=== PATIENT | male | born 1940 | race Caucasian/White ===

== ENCOUNTER 2023-06-22 07:15 | Emergency (ER) | payer BC, OTHER ==
--- NOTE | 2023-06-22 07:26 | ERPHSYRPT ---
- History of Present Illness Time Seen by Provider: 06/22/23 07:26 Source: patient, family Exam Limitations: no limitations Physician History: This is an 83-year-old white male patient who [facility] but also sees Dr. Gallegos in [facility] and presents soon after his left nephrostomy tube got caught and accidentally was pulled out. Patient is in pain. The nephrostomy tube was placed in March 2023. Oncology, at [facility] in [place], are using this tube to provide the patient with chemotherapy for renal cancer. The patient arrives with his vital signs stable. Patient has a history of hypertension, prostate issues, chronic anemia, hyperlipidemia, coronary artery disease, gastroesophageal reflux disease and anxiety. Timing/Duration: today Severity: moderate (In terms of pain) Associated Symptoms: denies symptoms Allergies/Adverse Reactions: No Known Drug Allergies Allergy (Verified 06/22/23 07:33) Home Medications: Amlodipine Besylate 5 mg [Norvasc 5 mg] 5 mg PO DAILY 09/01/22 [History] Aspirin EC 81 mg [Ecotrin 81 mg] 81 mg PO DAILY 09/01/22 [History] Atorvastatin Calcium 40 mg PO HS 09/01/22 [History] Cyanocobalamin (Vitamin B-12) [B-12] 1,000 mcg PO DAILY 09/01/22 [History] Diclofenac Sodium 75 mg PO BID 09/01/22 [History] Ferrous Gluconate 324 mg PO 3XW 09/01/22 [History] Losartan Potassium [Cozaar] 100 mg PO DAILY 09/01/22 [History] Metoprolol Tartrate 25 mg [Lopressor 25MG Tab] 25 mg PO BID 09/01/22 [History] Nitroglycerin 0.4 mg SL Q5MIN PRN MR X 3 PRN 09/01/22 [History] Polyethylene Glycol 3350 17 gm [Miralax Powder 17GM PACKET] 17 gm PO DAILY 0 09/01/22 [History] Sennosides/Docusate Sodium [Docusate Sodium-Sennosides Tab] 2 each PO BID 09/01/22 [History] Tamsulosin HCl 0.4 mg [Flomax 0.4 MG] 2 cap PO EVENING MEAL 09/01/22 [History] Hx Tetanus, Diphtheria Vaccination/Date Given: Yes Hx Influenza Vaccination/Date Given: Yes Hx Pneumococcal Vaccination/Date Given: Yes Travel Risk - International Travel Have you traveled outside of the country in past 3 weeks: No - Emerging Infectious Disease Are you exhibiting symptoms associated with any current EIDs: No - Vaccine Status Hx Covid Vaccintation/Booster/Date Given: No - Review of Systems Constitutional: No Symptoms Eyes: No Symptoms Ears, Nose, & Throat: No Symptoms Respiratory: No Symptoms Cardiac: No Symptoms Genitourinary Symptoms: Flank Pain (Left sideleft nephrostomy tube accidentally pulled out) Musculoskeletal: No Symptoms Skin: No Symptoms Neurological: No Symptoms Psychological: No Symptoms Endocrine: No Symptoms Hematologic/Lymphatic: No Symptoms - Past Medical History Pertinent Past Medical History: Yes Neurological History: No Pertinent History ENT History: Cataracts Cardiac History: Angina, Coronary Artery Disease, High Cholesterol, Hypertension Respiratory History: No Pertinent History Endocrine Medical History: No Pertinent History Musculoskeletal History: Fractures GI Medical History: GERD, Hernia, Other History: Other Psycho-Social History: Anxiety Other Medical History: 2 tumors to left kidney. stomach rolled up into chest. fx rt wrist - Past Surgical History Past Surgical History: Yes Neuro Surgical History: No Pertinent History Cardiac: Cardiac Catheterization, Cardiac Stent, Pacemaker Respiratory: No Pertinent History Gastrointestinal: Hernia Repair, Other Genitourinary: Kidney Surgery, Other Musculoskeletal: No Pertinent History Male Surgical History: No Pertinent History Other Surgical History: 2009-heart stent. 2013-pacemaker. 2015-removed 2 tumors from left kidney. stomach surgery to correct stomach rolled up - Social History Smoking Status: Never smoker Exposure to second hand smoke: No Drug Use: none Patient Lives Alone: No - Nursing Vital Signs Nursing Vital Signs: Initial Vital Signs Temperature 97.6 F 06/22/23 07:24 Pulse Rate 62 06/22/23 07:24 Respiratory Rate 19 06/22/23 07:24 Blood Pressure 159/89 06/22/23 07:24 O2 Sat by Pulse Oximetry 100 06/22/23 07:24 Pain Scale Pain Intensity 0 - Physical Exam General Appearance: mild distress, alert, anxiety, thin Eye Exam: PERRL/EOMI, eyes nml inspection Ears, Nose, Throat Exam: normal ENT inspection, moist mucous membranes Neck Exam: normal inspection, non-tender, supple, full range of motion Respiratory Exam: airway intact, No chest tenderness, No respiratory distress Cardiovascular Exam: regular rate/rhythm, normal heart sounds Gastrointestinal/Abdomen Exam: soft, normal bowel sounds, No tenderness Rectal Exam: not done Back Exam: normal inspection, normal range of motion, No CVA tenderness (Left side where the left nephrostomy tube was accidentally pulled out this morning prior to arrival) Extremity Exam: normal inspection, normal range of motion, pelvis stable Neurologic Exam: alert, oriented x 3, cooperative, driver guard II-XII nml as tested, nml cerebellar function, nml station & gait, sensation nml Skin Exam: normal color, warm, dry Lymphatic Exam: No adenopathy SpO2 Interpretation: normal O2 Delivery: Room Air - Course Nursing assessment & vital signs reviewed: Yes Ordered Tests: Active Orders 24 hr Category Date Time Status IV Insertion STAT Care 06/22/23 07:41 Active ABDOMEN AND PELVIS W/0 CONTRAS [CT] Stat Exams 06/22/23 07:54 Completed CBC W DIFF Stat Lab 06/22/23 06:01 Completed CMP Stat Lab 06/22/23 06:01 Completed Medication Summary Generic Name Dose Route Start Last Admin Trade Name Freq PRN Reason Stop Dose Admin Sodium Chloride 1,000 mls @ 100 mls/hr 06/22/23 07:45 06/22/23 07:55 Sodium Chloride 0.9% 1000 Ml IV 07/22/23 07:44 Not Given .Q10H DIANE Discontinued Medications Generic Name Dose Route Start Last Admin Trade Name Freq PRN Reason Stop Dose Admin Hydrocodone Bitart/Acetaminophen 1 tab 06/22/23 07:51 06/22/23 07:57 Hydrocodone/Apap 5/325 1 Tab Tablet PO 06/22/23 07:52 1 tab STAT ONE Administration Hydrocodone Bitart/Acetaminophen Confirm 06/22/23 07:56 Hydrocodone/Apap 5/325 1 Tab Tablet Administered 06/22/23 07:57 Dose 1 tab .ROUTE .STK-MED ONE Lorazepam 0.5 mg 06/22/23 07:42 06/22/23 07:56 Lorazepam 2 Mg/1 Ml 2 Mg Vial IV 06/22/23 07:43 Not Given STAT ONE Lorazepam 1 mg 06/22/23 07:51 06/22/23 07:57 Lorazepam 1 Mg Tablet PO 06/22/23 07:52 1 mg STAT ONE Administration Lorazepam Confirm 06/22/23 07:56 Lorazepam 1 Mg Tablet Administered 06/22/23 07:57 Dose 1 mg .ROUTE .STK-MED ONE Morphine Sulfate 4 mg 06/22/23 07:41 06/22/23 07:55 Morphine Sulfate 4 Mg/Ml Injection IV 06/22/23 07:42 Not Given STAT ONE Ondansetron HCl 4 mg 06/22/23 07:41 06/22/23 07:55 Ondansetron Hcl 4 Mg/2 Ml Vial IV 06/22/23 07:42 Not Given STAT ONE Lab/Rad Data: Laboratory Result Diagrams 06/22/23 06:01 06/22/23 06:01 Laboratory Results 06/22/23 06/22/23 Range/Units 06:01 06:01 WBC 12.8 H (4.0-10.5) x10^3/uL RBC 4.49 (4.1-5.6) x10^6/uL Hgb 12.7 (12.5-18.0) g/dL Hct 38.8 L (42-50) % MCV 86.4 (78-100) fL MCH 28.3 (26-32) pg MCHC 32.7 (32-36) g/dL RDW 13.2 (11.5-14.0) % Plt Count 375 (150-450) x10^3/uL MPV 10.0 (7.5-11.0) fL Gran % 80.4 H (36.0-66.0) % Immature Gran % (Auto) 0.4 (0.00-0.4) % Nucleat RBC Rel Count 0.0 (0.00-0.1) % Eos # (Auto) 0.19 (0-0.5) x10^3/uL Immature Gran # (Auto) 0.05 H (0.00-0.03) x10^3u/L Absolute Lymphs (auto) 1.11 (1.0-4.6) x10^3/uL Absolute Monos (auto) 1.11 (0.0-1.3) x10^3/uL Absolute Nucleated RBC 0.00 (0.00-0.01) x10^3u/L Lymphocytes % 8.7 L (24.0-44.0) % Monocytes % 8.7 (0.0-12.0) % Eosinophils % 1.5 (0.00-5.0) % Basophils % 0.3 (0.0-0.4) % Absolute Granulocytes 10.32 H (1.4-6.9) x10^3/uL Basophils # 0.04 (0-0.4) x10^3/uL Sodium 141 (135-145) mmol/L Potassium 3.6 (3.5-5.1) mmol/L Chloride 105 (98-107) mmol/L Carbon Dioxide 25 (22-30) mmol/L Anion Gap 14.5 (5-15) MEQ/L BUN 24 H (9-20) mg/dL Creatinine 0.76 (0.66-1.25) mg/dL Estimated GFR 90.3 ML/MIN Glucose 96 (74-106) mg/dL Calcium 9.6 (8.4-10.2) mg/dL Total Bilirubin 0.70 (0.2-1.3) mg/dL AST 19 (17-59) U/L ALT 10 (0-50) U/L Alkaline Phosphatase 87 (38-126) U/L Serum Total Protein 7.0 (6.3-8.2) g/dL Albumin 4.0 (3.5-5.0) g/dL - Progress Progress: improved, pain not gone completely Progress Note: 06/22/23 07:38 My medical decision making and the assignment of low complexity to this patient's medical issue today is based on review of the patient's past medical history, review of the patient's medication list, review of the patient's history of present illness and physical findings on examination. The workup in this patient includes placement of an intravenous line, CBC, CMP, infusion of low rate normal saline solution, pain control with morphine, infusion of antiemetic and infusion of an anxiolytic. This patient's left nephrostomy tube accidentally pulled out. I inspected the tube and it appears to be completely intact. Hopefully the tract has sufficiently formed within the last few months. His abdominal exam is benign. The main issue, I believe, is to place an intravenous line and to provide him with pain control. We will contact the [facility] in [place] to see if they will accept him in transfer or if they will allow us to transfer him to [facility] where he had the nephrostomy tube placed. 06/22/23 07:50 2 of our emergency department nurses attempted to place an intravenous line in him. Patient wants oral pain medicine. He does not want intramuscular injections of pain medicine. I will also add Ativan to his regimen. Patient is very anxious. 06/22/23 07:52 I was informed by nurse Grayson here in our emergency department that Babita at the [facility] in [place] will be contacting the interactive media specialist they are at that facility. She will call us back to determine if they will allow us to transfer this patient to their facility or to [facility] where the patient had the procedure performed. 06/22/23 09:08 I interpreted the patient's laboratory data results. Patient does have a leukocytosis. The [facility] in [place] called our nurse Grayson and stated that they had no beds available. They told us to go ahead and contact [facility]. They were contacted and we received a phone call back sta ting that the patient's urologist, Dr. Maher, stated that the patient may be discharged to home. This urologist told us to tell the patient to call the urology service if there are any questions or concerns over the weekend at [phone]. He stated that their service will make arrangements for a different way to make sure the patient receives his final dose of chemotherapy. 06/22/23 10:19 The radiologist interpreted the patient's CT scan of the abdomen pelvis without contrast. The impression states left renal nonobstructive stone. Thickening of the ibarra of the renal pelvis and proximal ureter. This could represent infection. No other acute process present within the abdomen and pelvis. Counseled pt/family regarding: lab results, diagnosis Medical Desision Making - Independent Historian Additional History obtained from: Family - Discussion of managment Care discussed with:: specialist (Dr. Maher, the patient's urologist at [facility]) Reviewed:: Test results Agreed on:: Treatment plan, need for follow-up - Diagnostic Testing Diagnostic test were ordered, analyzed, and reviewed by me: Yes Radiological Interpretation: Reviewed by me, Teleradiologist Report - Risk of complications The pt has a mod risk of morbidity or mortality based on: Need for prescription drug management - Departure Departure Disposition: Home Clinical Impression: Nephrostomy tube displaced Condition: Stable Critical Care Time: No Referrals: MARCUS GALLEGOS Jr., MD [Primary Care Provider] - Follow up/PCP as directed Additional Instructions: Drink plenty of clear liquids. Take your medications as prescribed. If you have any questions call your urologist answering service (Dr. Maher) at [phone]. Make sure you contact their office on 06/24/2023 to make arrangements for further evaluation and management. Prescriptions: Hydrocodone/APAP 5/325 [[place] 5/325 mg] 1 each PO Q8H PRN PRN #7 tablet MDD 3 PRN Reason: Pain Ciprofloxacin [Cipro 500 MG] 500 mg PO BID #14 tablet
[2023-06-22 07:33] VITALS: TEMP 97.6
[2023-06-22] MEDS: MORPHINE SULFATE 4 MG INJ IV ONE (07:55)
[2023-06-22] MEDS: Zofran 4 MG/2 ML VIAL IV ONE (07:55)
[2023-06-22] MEDS: Sodium Chloride 0.9% 1000 ML 1,000 ML IV SCH (07:55)
[2023-06-22] MEDS ORDERED: NORCO 5/325 MG ONE (07:56)
[2023-06-22] MEDS: Ativan 2 MG/1 ML VIAL IV ONE (07:56)
[2023-06-22] MEDS ORDERED: Ativan 1 MG ONE (07:56)
[2023-06-22] MEDS: NORCO 5/325 MG PO ONE (07:57)
[2023-06-22] MEDS: Ativan 1 MG PO ONE (07:57)
[2023-06-22 08:06] LABS: Absolute Neutrophil Ct (ANC) 10.32 x10^3/uL (1.4-6.9); BASOPHIL % 0.3 % (0.0-0.4); Basophil (Absolute #) 0.04 x10^3/uL (0-0.4); Eosinophil % 1.5 % (0.00-5.0); Eosinophil (Absolute #) 0.19 x10^3/uL (0-0.5); Hematocrit 38.8 % (42-50); Hemoglobin 12.7 g/dL (12.5-18.0); IMMATURE GRAN # 0.05 x10^3u/L (0.00-0.03); IMMATURE GRAN % 0.4 % (0.00-0.4); Lymphocyte (Absolute #) 1.11 x10^3/uL (1.0-4.6); Lymphocytes % 8.7 % (24.0-44.0); Mean Cell Volume 86.4 fL (78-100); Mean Corpuscular Hemoglobin 28.3 pg (26-32); Mean Corpuscular Hgb Concent. 32.7 g/dL (32-36); Monocyte (Absolute #) 1.11 x10^3/uL (0.0-1.3); Monocytes % 8.7 % (0.0-12.0); Neutrophil % 80.4 % (36.0-66.0); Platelet Count 375 x10^3/uL (150-450); Red Blood Count 4.49 x10^6/uL (4.1-5.6); Red Cell Distribution Width 13.2 % (11.5-14.0); White Blood Count 12.8 x10^3/uL (4.0-10.5)
[2023-06-22 08:27] LABS: ANION GAP 14.5 MEQ/L (5-15); BILIRUBIN,TOTAL 0.7 mg/dL (0.2-1.3); Calcium 9.6 mg/dL (8.4-10.2); Creatinine 1 0.76 mg/dL (0.66-1.25); EST GLOMERULAR FILTRATION RATE 90.3 ML/MIN; Potassium 3.6 mmol/L (3.5-5.1)
--- NOTE | 2023-06-22 10:10 | XRAY ---
CLINICAL HISTORY: L flank pain COMPARISON: None TECHNIQUE: A CT scan of the abdomen and pelvis was performed without IV contrast. Coronal and sagittal reconstructive images were also obtained. One of the following dose reduction techniques was utilized for this exam: Automated exposure control, adjustment of the mA and/or kV according to patient size, use of iterative reconstruction FINDINGS: Two electrodes are identified in the right atrium and ventricle, likely representing a leadless cardiac pacemaker. Mild fibrotic changes are seen in the basal segments of both lower lobes. The liver has average measurements. A few calcifications, measuring up to 2 mm, are seen in the parenchyma. Otherwise, no parenchymal abnormalities are noted. The portal vein, intrahepatic biliary radicals, and the bile ducts are normal. The gallbladder demonstrates a thin wall and homogeneous contents. Numerous calcifications, measuring up to 3 mm, are seen in the spleen parenchyma. Otherwise, no spleen abnormalities are noted. The pancreas and adrenal glands are unremarkable. The right kidney appears unremarkable with no cysts masses or hydronephrosis. A tiny calcific focus measuring about 2.0 x 1.0 mm is seen in the pyramid of upper pole of left kidney. The right ureter is normal with no stones. The left kidney is of average size and shape, harboring a stone, measuring 5x3 mm, is identified in the lower calyx group. There is a thickening of the pelvicalyceal system and the proximal ureter with distension of the renal pelvis and the presence of small hyperdense material and air pocket inside. The left ureter measuring up to 10 mm in diameter with no stones. The ascending colon, transverse colon, and descending colon are dilated. There is calcification of the aorta. No free air and no ascites. No acute appendicitis Pelvis:? The urinary bladder is unremarkable. The sigmoid colon shows numerous diverticula with no evidence of diverticulitis. A few calcifications are identified in the pelvic soft tissues, representing phleboliths. Mildly enlarged prostate.? No evidence of pelvic lymphadenopathy.? No lytic or sclerotic bone lesions. Mild degenerative changes are seen in the lumbar spine. Severe degenerative changes are seen in the right hip joint. IMPRESSION: 1. Left renal non-obstructive stone, thickening of the ibarra of the renal pelvis and proximal ureter could represent infection. correlation with clinical data is advised. 2. Small calcifications in the liver and spleen parenchyma, nonspecific. 3. Mild fibrotic changes in the basal segments of both lower lobes, sequelae of previous infection. 4. Mild degenerative changes are seen in the lumbar spine. 5. Severe degenerative changes are seen in the right hip joint Electronically Signed by: Candice Christine MD. (06/22/2023 10:05:51 EDT)
[2023-06-22 10:38] VITALS: BP 131/71; PULSE 61; RESP 21; O2SAT 98
== END 2023-06-22 10:38 | disposition home or self-care (01) ==
LOC: ED 07:15
DX: N99.522 Malfunction of incontinent external stoma of urinary tract (principal); I10 Essential (primary) hypertension; E78.5 Hyperlipidemia, unspecified; Z79.891 Long term (current) use of opiate analgesic; Z79.899 Other long term (current) drug therapy
CPT/HCPCS: 36415; 74176; 80053; 85025; 99284; A9270-GY